=== PATIENT | male | born 1960 | race Caucasian/White ===

== ENCOUNTER 2017-04-24 12:14 | Day surgery (SDC) | payer MEDICARE, MEDICAID ==
--- NOTE | 2017-04-20 11:09 | EKG REPORT ---
SEVERITY:- ABNORMAL ECG - SINUS RHYTHM PROBABLE LEFT ATRIAL ABNORMALITY RIGHT BUNDLE BRANCH BLOCK : Confirmed by: Micheal Strickland 20-Apr-2017 11:08:21
--- NOTE | 2017-04-20 11:34 | RADIOLOGY REPORT (SQ) ---
EXAM DESCRIPTION: CHEST PA/LATERAL COMPLETED DATE/TIME: 04/20/2017 11:01 am REASON FOR STUDY: PRE OP COMPARISON: None. EXAM PARAMETERS: NUMBER OF VIEWS: two views TECHNIQUE: Digital Frontal and Lateral radiographic views of the chest acquired. RADIATION DOSE: NA LIMITATIONS: none FINDINGS: LUNGS AND PLEURA: No opacities, masses or pneumothorax. No pleural effusion. MEDIASTINUM AND HILAR STRUCTURES: No masses or contour abnormalities. HEART AND VASCULAR STRUCTURES: Heart normal size. No evidence for failure. BONES: No acute findings. HARDWARE: None in the chest. OTHER: No other significant finding. IMPRESSION: NO SIGNIFICANT RADIOGRAPHIC FINDING IN THE CHEST. TECHNICAL DOCUMENTATION: JOB ID: [id number] [employer]- All Rights Reserved
[2017-04-20 11:49] LABS: APPEARANCE,URINE CLEAR; BILIRUBIN,URINE NEGATIVE (NEGATIVE); COLOR,URINE YELLOW; GLUCOSE, URINE >=500 mg/dL (NEGATIVE); KETONES,URINE NEGATIVE (NEGATIVE); LEUKOCYTE ESTERASE,URINE NEGATIVE (NEGATIVE); NITRITE,URINE NEGATIVE (NEGATIVE); PROTEIN,URINE NEGATIVE (NEGATIVE); URINE SPECIFIC GRAVITY 1.024
[2017-04-20 11:52] LABS: ABSOLUTE BASOPHILS # (AUTO) 0.1 10^3/uL (0.0-0.2); ABSOLUTE EOSINOPHILS # (AUTO) 0.2 10^3/uL (0.0-0.6); ABSOLUTE MONOCYTES (AUTO) 0.5 10^3/uL (0.1-1.4); ABSOLUTE NEUT (AUTO) 5.8 10^3/uL (1.7-8.2); BASOPHILS % (AUTO) 1.1 % (0-2); EOSINOPHILS % (AUTO) 2.3 % (0-6); HEMATOCRIT 41.7 % (37.9-51.0); HEMOGLOBIN 14.6 g/dL (13.5-17.0); LYMPHOCYTES % (AUTO) 23.4 % (13-45); MEAN CORPUSCULAR HEMOGLOBIN 29.9 pg (27.0-33.4); MEAN CORPUSCULAR HGB CONC 34.9 g/dL (32.0-36.0); MEAN CORPUSCULAR VOLUME 86 fl (80-97); MONOCYTES % (AUTO) 5.7 % (3-13); PLATELET COUNT 239 10^3/uL (150-450); RED BLOOD COUNT 4.86 10^6/uL (4.35-5.55); RED CELL DISTRIBUTION WIDTH 13.8 % (11.5-14.0); SEGMENTED NEUTROPHILS % (AUTO) 67.5 % (42-78); TOTAL CELLS COUNTED % (AUTO) 100 %; WHITE BLOOD COUNT 8.5 10^3/uL (4.0-10.5)
[2017-04-20 12:16] LABS: ANION GAP 17 (5-19); BLOOD UREA NITROGEN 28 mg/dL (7-20); CALCIUM 9.6 mg/dL (8.4-10.2); CARBON DIOXIDE 25 mmol/L (22-30); CHLORIDE 98 mmol/L (98-107); GLUCOSE 269 mg/dL (75-110); POTASSIUM 4.3 mmol/L (3.6-5.0); SODIUM 139.6 mmol/L (137-145)
[~2017-04-24 12:14] MED LIST: BUPIVACAINE HCL 0.5 % INJ/PF 30 ML SDV ONE; CEFAZOLIN 2 GM/D5W RTU 2 GM/50 ML RTUPB IV PRN; LACTATED RINGERS 1000 ML IV PRN; LIDOCAINE 0.5% INJ-PF (5 MG/ML) 50 ML SDV SUBCUT PRN
[2017-04-24] MEDS ORDERED: FAMOTIDINE INJ/PF 20 MG/2 ML SDV IV ONE (13:58)
[2017-04-24] MEDS ORDERED: METOCLOPRAMIDE HCL INJ/PF 10 MG/2 ML SDV ONE (14:02)
[2017-04-24] MEDS ORDERED: RINGERS SOLUTION,LACTATED 500 ML IV ONE (14:30)
[2017-04-24] MEDS ORDERED: SUCCINYLCHOLINE CHLORIDE INJ 200 MG/10 ML VIAL ONE (14:35)
[2017-04-24] MEDS ORDERED: MIDAZOLAM 2 MG/2 ML INJ ONE (14:40)
[2017-04-24] MEDS ORDERED: HYDROMORPHONE HCL INJ/PF 2 MG/ML AMPULE ONE (14:40)
[2017-04-24] MEDS ORDERED: FENTANYL CITRATE INJ/PF 100 MCG/2 ML AMPUL ONE ×2 (14:40→17:37)
[2017-04-24] MEDS ORDERED: PROPOFOL INJ 200 MG/20 ML VIAL IV ONE (14:41)
[2017-04-24] MEDS ORDERED: ACETAMINOPHEN 100 ML IV ONE (14:41)
[2017-04-24] MEDS ORDERED: DEXAMETHASONE SOD PHOSPHATE INJ 4 MG/1 ML VIAL ONE (14:41)
[2017-04-24] MEDS ORDERED: ONDANSETRON HCL INJ/PF 4 MG/2 ML SDV ONE (14:41)
[2017-04-24] MEDS ORDERED: OXYCODONE-ACETAMINOPHEN 5-325 MG TABLET PO PRN ×3 (15:51→17:16)
[2017-04-24] MEDS ORDERED: FENTANYL CITRATE INJ/PF 100 MCG/2 ML AMPUL IV PRN ×2 (15:51)
[2017-04-24] MEDS ORDERED: MORPHINE SULFATE 10 MG/ML INJ IV PRN (15:51)
[2017-04-24] MEDS ORDERED: DIPHENHYDRAMINE HCL 50 MG/ML VIAL IV PRN (15:51)
[2017-04-24] MEDS ORDERED: PROMETHAZINE HCL INJ 25 MG/1 ML VIAL IV PRN ×2 (15:51)
[2017-04-24] MEDS ORDERED: ONDANSETRON HCL INJ/PF 4 MG/2 ML SDV IV PRN (17:16)
[2017-04-24] MEDS ORDERED: HYDROMORPHONE HCL INJ/PF 2 MG/ML AMPULE IV PRN (17:16)
--- NOTE | 2017-04-24 17:16 | Discharge Summary ---
Discharge Summary (SDC) - Discharge Final Diagnosis: Left intra-articular distal radius fracture Date of Surgery: 04/24/17 Discharge Date: 04/24/17 Condition: Good Treatment or Instructions: Schedule Follow Up w/ Dr. Gabe Alcala @ [facility] to be seen in 10-14 days or as scheduled [place]: [place]: [place]: Ice and elevate Keep splint clean/dry/intact. If your fingers become numb please unwrap the Junior wrap but leave the splint in place, if the sensation does not return within 30 minutes please return to the emergency department. May begin finger range of motion attempting to make full fist. Please use ibuprofen (Motrin or Advil) 600-800 mg every 8 hours as needed for pain or fever once Toradol completed. You may also use acetaminophen (Tylenol) 1000 mg every 4-6 hours as needed for pain or fever. Please be aware that many medications contain acetaminophen, do not exceed a total of 1000 mg of acetaminophen every 6 hours. If ibuprofen and acetaminophen are not sufficient for your pain you may take the Percocet/[place]. Please be aware that the Percocet/[place] does contain Tylenol. Stool softener of choice when on pain medication. Prescriptions: Ketorolac Tromethamine [Toradol 10 mg Tablet] 10 mg PO Q8HP PRN #10 tablet PRN Reason: Oxycodone HCl/Acetaminophen [Percocet 5-325 mg Tablet] 1 - 2 tab PO ASDIR PRN # 45 tablet PRN Reason: Discharge Diet: As Tolerated Respiratory Treatments at Home: Deep Breathing/Coughing Discharge Activity: No Lifting Over 10 Pounds, No Lifting/Push/Pulling Report the Following to Your Physician Immediately: Fever over 101 Degrees, Unusual Bleeding, Redness, Swelling, Warmth, Increased Soreness
--- NOTE | 2017-04-24 17:17 | RADIOLOGY REPORT (SQ) ---
EXAM DESCRIPTION: WRIST LEFT 2 VIEWS; NO CHG FLUORO COMPLETED DATE/TIME: 04/24/2017 5:01 pm REASON FOR STUDY: ORIF LT WRIST S52.562A GODINZE'S FRACTURE OF LEFT RADIUS, INIT FOR CLOS FX E11.9 TYPE 2 DIABETES MELLITUS WITHOUT COMPLICATIONS COMPARISON: None. FLUOROSCOPY TIME: 2 minutes 17 seconds 4 digital images saved to PACS. TECHNIQUE: Intra-operative images acquired during surgical procedure to evaluate progress. NUMBER OF IMAGES: 4 digital C-arm images LIMITATIONS: None. FINDINGS: Intra procedural imaging and fluoro during ORIF left distal radius fracture with hardware. Please see the operative report for further details IMPRESSION: Intra procedural imaging and fluoro COMMENT: Quality ID [id number]: Final reports for procedures using fluoroscopy that document radiation exp osure indices, or exposure time and number of fluorographic images (if radiation exposure indices are not available) Please consult full operative report of the attending physician for description of the procedure. TECHNICAL DOCUMENTATION: JOB ID: [id number] [employer]- All Rights Reserved
--- NOTE | 2017-04-24 17:17 | RADIOLOGY REPORT (SQ) ---
EXAM DESCRIPTION: WRIST LEFT 2 VIEWS; NO CHG FLUORO COMPLETED DATE/TIME: 04/24/2017 5:01 pm REASON FOR STUDY: ORIF LT WRIST S52.562A GODINEZ'S FRACTURE OF LEFT RADIUS, INIT FOR CLOS FX E11.9 TYPE 2 DIABETES MELLITUS WITHOUT COMPLICATIONS COMPARISON: None. FLUOROSCOPY TIME: 2 minutes 17 seconds 4 digital images saved to PACS. TECHNIQUE: Intra-operative images acquired during surgical procedure to evaluate progress. NUMBER OF IMAGES: 4 digital C-arm images LIMITATIONS: None. FINDINGS: Intra procedural imaging and fluoro during ORIF left distal radius fracture with hardware. Please see the operative report for further details IMPRESSION: Intra procedural imaging and fluoro COMMENT: Quality ID [id number]: Final reports for procedures using fluoroscopy that document radiation exp osure indices, or exposure time and number of fluorographic images (if radiation exposure indices are not available) Please consult full operative report of the attending physician for description of the procedure. TECHNICAL DOCUMENTATION: JOB ID: [id number] [employer]- All Rights Reserved
--- NOTE | 2017-04-24 17:19 | Operative Report ---
Operative Report DATE OF SURGERY: 04/24/17 PREOPERATIVE DIAGNOSIS: Left >3 part intra-articular distal radius fracture POSTOPERATIVE DIAGNOSIS: Same OPERATION: ORIF Left >3 part intra-articular distal radius fracture SURGEON: DAX SUAREZ ANESTHESIA: Local COMPLICATIONS: None ESTIMATED BLOOD LOSS: Minimal PROCEDURE: Indication for above procedure: 56-year-old male who sustained a fall onto his left wrist from a ladder. Patient sustained a comminuted intra-articular distal radius fracture. He then followed up at my office at which point we discussed findings on radiographs and treatment options. Given the amount of comminution and intra-articular nature recommend operative intervention. Risks and benefits were explained patient verbalized understanding consented for the procedure. Procedure In Detail: Patient was seen and evaluated in the preoperative holding area. The LEFT upper extremity was initialized and marked. Patient received 2g of Ancef IV for bacterial prophylaxis. Patient was taken back to the operative room where transferred to the operative table and placed under general anesthesia. Once they were adequately anesthetized and a nonsterile tourniquet was placed on his upper extremity. A surgical team debriefing was performed ensuring all instrumentation was available, the surgical procedure was discussed with possible concerns reviewed. The upper extremity was prepped with chlorhexidine and alcohol and draped in a sterile fashion. A timeout was done identifying correct patient, procedure and extremity everyone in attendance agree with this and verbalized no concerns.The extremity was exsanguinated the tourniquet was inflated to 250 mmHg. A longitudinal skin incision was made via a volar approach of Lane along the FCR tendon sheath. The FCR tendon sheath was opened and the FCR retracted ulnarly, the palmar cutaneous branch of the median nerve was identified and protected throughout the entirety of the case. The radial artery was identified and retracted radially. Blunt dissection was performed to the FPL which was carefully sweeped ulnarly. This brought me to the pronator quadratus which was elevated off of the distal radius via sharp dissection with a 15 blade to allow later repair. The fracture was then identified and a reduction maneuver was performed over a dorsal bump and utilizing a [place] elevator. Acceptable reduction was then obtained and a Acumed 3 hole volar distal radius plate was placed into position and fixated with a K wire distally x2. AP and lateral radiographs were then obtained demonstrating appropriate placement of the plate and acceptable reduction of the fracture. Plate was fixated proximally through the oblong hole with bicortical fixation. This provided a buttress to the fracture. Using a reduction tenaculum I was able to bring the plate down to bone distally. After drilling distally a cortical screw was used bringing the plate further down to bone, avoiding any liftoff of the plate from the volar cortex that could cause flexor tendon irritation postoperatively. Drilling the near cortex and to but not thru the far cortex a locking screw was then placed in the remaining holes. The previous cortex screw was removed and replaced with a locking screw. Two additional screws were placed into the styloid giving further stability to the radial styloid piece. AP and lateral radius were then done confirming appropriate placement of plate with no evidence of penetration intra-articular or within the DRUJ. Fracture was successfully reduced. Intra-articular step-off less than 0.5 mm no evidence of diastases there was evangelical of radial height, inclination and volar tilt. I then turned my attention to completion of the proximal screws. The remaining 2 holes proximally were drilled bicortically placing the appropriate size cortex cortex screws. AP and lateral radiographs were done confirming appropriate placement of the plate and reduction of the fracture there was evangelical of radial height, radial inclination and volar tilt. No evidence of dorsal screw prominence or intra-articular penetration of the DRUJ or radiocarpal joint. The wound was copiously irrigated with normal saline. There was no evidence of DRUJ instability on examination, Negative Banuelos's test, No crepitus with range of motion at the radiocarpal joint or DRUJ. I then closed the pronator quadratus with interrupted 3-0 Vicryl suture. Subcutaneous tissues were closed with interrupted 4-0 Monocryl suture. The skin was closed with a running subcuticular 4-0 Monocryl suture which was reinforced with Dermabond and Steri- Strips. 20 mL of 0.5% Marcaine were injected for postoperative pain control. The tourniquet was then deflated. Was dressed with sterile 4 x 4's and patient was placed in a well-padded volar splint with bias wrap. Sponge counts, instrument counts and needle counts were correct. There was no intraoperative complications patient tolerated procedure well stable to PACU. Postoperative plan: Patient will be switched to a removal brace at her first postoperative followup visit and begin range of motion. Will obtain radiographs at followup of the wrist.
[2017-04-24] MEDS: FENTANYL CITRATE INJ/PF 100 MCG/2 ML AMPUL IV PRN ×2 (17:38→17:45)
[2017-04-24] MEDS ORDERED: LIDOCAINE 2%/EPINEPHRINE INJ 20 ML VIAL ONE (18:03)
[2017-04-24] MEDS ORDERED: LIDOCAINE 2% INJ (20 MG/ML) 20 ML MDV ONE (18:03)
[2017-04-24] MEDS ORDERED: ROPIVACAINE HCL 0.5% INJ/PF (5 MG/1 ML) 30 ML SDV ONE (18:04)
[2017-04-25 01:27] VITALS: BP 160/110
== END 2017-04-25 01:25 | disposition home or self-care (01) ==
LOC: OROUT 12:14 → 4S 19:42 → 4W 19:49 → 4S 19:50 → OROUT 04-25 01:25
PROVIDERS: ATTEND Orthopaedic Surgery
PROC: 0PSJ04Z Reposition Left Radius with Internal Fixation Device, Open Approach (ICD-10-PCS; principal; 2017-04-24 14:15)
DX: S52.572A Other intraarticular fracture of lower end of left radius, initial encounter for closed fracture (principal); S52.562A Barton's fracture of left radius, initial encounter for closed fracture; E11.9 Type 2 diabetes mellitus without complications; E78.5 Hyperlipidemia, unspecified; F31.9 Bipolar disorder, unspecified; I10 Essential (primary) hypertension; K21.9 Gastro-esophageal reflux disease without esophagitis
CPT/HCPCS: 25609; 93005; 36415; 82962; 85025; 80048; 81001; 83036; 71046; 73100; 93010; 94762 ×2; C1713 ×2; J2795; J2250; J3490 ×3; J1100; J3010; J2765; J1170; J0330; J2405; J2704; S0028; J0690; J0131; 01830